=== PATIENT | female | born 1995 | race Caucasian/White ===

== ENCOUNTER → 2020-11-24 | Outpatient (CLI) | payer BC ==
[~2020-11-24] VITALS: Ht 167.6 cm; Wt 78.0 kg
== END ==
LOC: OPSV 09:00
DX: K52.839 Microscopic colitis, unspecified (principal); R19.8 Other specified symptoms and signs involving the digestive system and abdomen; K92.1 Melena; K59.04 Chronic idiopathic constipation; K29.60 Other gastritis without bleeding; M25.50 Pain in unspecified joint; Z87.898 Personal history of other specified conditions; Z86.59 Personal history of other mental and behavioral disorders; Z87.39 Personal history of other diseases of the musculoskeletal system and connective tissue; Z86.19 Personal history of other infectious and parasitic diseases; Z87.19 Personal history of other diseases of the digestive system; Z83.3 Family history of diabetes mellitus; Z83.49 Family history of other endocrine, nutritional and metabolic diseases; Z80.49 Family history of malignant neoplasm of other genital organs; Z80.8 Family history of malignant neoplasm of other organs or systems; Z78.9 Other specified health status; Z72.0 Tobacco use; Z88.8 Allergy status to other drugs, medicaments and biological substances; Z88.2 Allergy status to sulfonamides
CPT/HCPCS: 96365; 96366; 96375; 96413; 96415; J1720; J1745; J7050

== ENCOUNTER → 2021-01-19 | Outpatient (CLI) | payer BC, OTHER ==
[~2021-01-19] VITALS: Ht 167.6 cm; Wt 78.0 kg
[2021-01-19 10:55] LABS: HEMOGLOBIN 14.6 gm/dl (12.3-15.3); RED BLOOD COUNT 5.02 M/UL (4.00-5.10); WHITE BLOOD COUNT 8.7 K/UL (4.5-11.0)
[2021-01-19 11:36] LABS: BUN/CREATININE RATIO 18 (0-10)
== END ==
LOC: OPSV 10:00
PROVIDERS: Internal Medicine Gastroenterology
DX: K29.60 Other gastritis without bleeding (principal); K52.839 Microscopic colitis, unspecified
CPT/HCPCS: 36415; 80053; 85025; 85652; 86140; 96365; 96366; 96375; 96413; 96415; J1720; J1745; J7050

== ENCOUNTER → 2021-03-16 | Outpatient (CLI) | payer BC, OTHER ==
[~2021-03-16] VITALS: Ht 167.6 cm; Wt 78.0 kg
[2021-03-16 10:16] LABS: HEMOGLOBIN 13.2 gm/dl (12.3-15.3); RED BLOOD COUNT 4.76 M/UL (4.00-5.10); WHITE BLOOD COUNT 7.5 K/UL (4.5-11.0)
[2021-03-16 10:38] LABS: BUN/CREATININE RATIO 17 (0-10)
== END ==
LOC: OPSV 09:00
PROVIDERS: Internal Medicine Gastroenterology
DX: K52.839 Microscopic colitis, unspecified (principal); K29.60 Other gastritis without bleeding; K59.04 Chronic idiopathic constipation; F31.9 Bipolar disorder, unspecified; F17.200 Nicotine dependence, unspecified, uncomplicated; Z88.8 Allergy status to other drugs, medicaments and biological substances; Z88.2 Allergy status to sulfonamides
CPT/HCPCS: 36415; 80053; 85025; 86140; 96365; 96366; 96375; 96413; 96415; J1720; J1745; J7050

== ENCOUNTER → 2021-05-11 | Outpatient (CLI) | payer BC, OTHER ==
[~2021-05-11] VITALS: Ht 167.6 cm; Wt 90.7 kg
[2021-05-11 09:16] LABS: HEMOGLOBIN 13.8 gm/dl (12.3-15.3); RED BLOOD COUNT 5.05 M/UL (4.00-5.10); WHITE BLOOD COUNT 7.6 K/UL (4.5-11.0)
[2021-05-11 09:38] LABS: BUN/CREATININE RATIO 20 (0-10)
[2021-05-17 19:13] LABS: ANTI-INFLIXIMAB ANTIBODY <22 ng/mL (.); INFLIXIMAB DRUG LEVEL 7.5 ug/mL (.)
== END ==
LOC: OPSV 08:21
PROVIDERS: Internal Medicine Gastroenterology
DX: K52.839 Microscopic colitis, unspecified (principal)
CPT/HCPCS: 36415; 80053; 80299; 82397; 85025; 86140; 96375; 96413; 96415; J1720; J1745; J7050

== ENCOUNTER → 2021-07-13 | Outpatient (CLI) | payer BC ==
[~2021-07-13] VITALS: Ht 167.6 cm; Wt 90.7 kg
[2021-07-13 09:20] LABS: HEMOGLOBIN 13.2 gm/dl (12.3-15.3); RED BLOOD COUNT 4.89 M/UL (4.00-5.10); WHITE BLOOD COUNT 9.9 K/UL (4.5-11.0)
[2021-07-13 09:41] LABS: BUN/CREATININE RATIO 21 (0-10)
== END ==
LOC: OPSV 08:26
PROVIDERS: Internal Medicine Gastroenterology
DX: K52.839 Microscopic colitis, unspecified (principal)
CPT/HCPCS: 36415; 80053; 85025; 86140; 96375; 96413; 96415; J1720; J1745; J7050

== ENCOUNTER → 2021-09-07 | Outpatient (CLI) | payer BC ==
[~2021-09-07] VITALS: Ht 167.6 cm; Wt 90.7 kg
[2021-09-07 09:15] LABS: HEMOGLOBIN 12.4 gm/dl (12.3-15.3); RED BLOOD COUNT 4.66 M/UL (4.00-5.10); WHITE BLOOD COUNT 10.4 K/UL (4.5-11.0)
[2021-09-07 09:57] LABS: BUN/CREATININE RATIO 17 (0-10)
== END ==
LOC: OPSV 08:26
PROVIDERS: Internal Medicine Gastroenterology
DX: K52.839 Microscopic colitis, unspecified (principal)
CPT/HCPCS: 80053; 85025; 86140; 96375; 96413; 96415; J1720; J1745; J7030

== ENCOUNTER → 2021-11-02 | Outpatient (CLI) | payer BC ==
[~2021-11-02] VITALS: Ht 167.6 cm; Wt 97.5 kg
[2021-11-02 09:41] LABS: HEMOGLOBIN 12.1 gm/dl (12.3-15.3); RED BLOOD COUNT 4.33 M/UL (4.00-5.10); WHITE BLOOD COUNT 12.8 K/UL (4.5-11.0)
[2021-11-02 10:02] LABS: BUN/CREATININE RATIO 15 (0-10)
== END ==
LOC: OPSV 08:45
PROVIDERS: Nurse Practitioner Family
DX: K52.839 Microscopic colitis, unspecified (principal)
CPT/HCPCS: 80053; 85025; 86140; 96375; 96413; 96415; J1720; J1745; J7050

== ENCOUNTER → 2021-12-28 | Outpatient (CLI) | payer BC ==
[~2021-12-28] VITALS: Ht 167.6 cm; Wt 78.0 kg
[2021-12-28 09:59] LABS: HEMOGLOBIN 12.1 gm/dl (12.3-15.3); RED BLOOD COUNT 4.41 M/UL (4.00-5.10); WHITE BLOOD COUNT 15.7 K/UL (4.5-11.0)
[2021-12-28 10:30] LABS: BUN/CREATININE RATIO 13 (0-10)
== END ==
LOC: OPSV 09:00
PROVIDERS: Internal Medicine Gastroenterology
DX: K52.839 Microscopic colitis, unspecified (principal)
CPT/HCPCS: 80053; 85025; 86140; 96375; 96413; 96415; J1720; J1745; J7050